=== PATIENT | female | born 1990 | race Caucasian/White ===

== ENCOUNTER 2018-11-10 21:35 | Emergency (ER) | payer MEDICAID ==
[~2018-11-10] VITALS: Ht 154.9 cm; Wt 81.6 kg
--- NOTE | 2018-11-10 21:48 | NUR ---
Patient to ER bed 3 to gown for evaluation. Side rails up.
[2018-11-10 21:50] VITALS: BP_SYST 158
--- NOTE | 2018-11-10 21:55 | NUR ---
Pt C/O sudden onset of dizziness. Pt states she was waiting for a table at a restaurant, started feeling dizzy and having palpatations. In the ED blood pressure is elevated. Denies KO, N/V, chest pain, shortness of breath, or any other symptoms at this time. Will continue to monitor.
--- NOTE | 2018-11-10 22:07 | NUR ---
ER Dr. Rene at bedside examining patient.
[2018-11-10 22:59] VITALS: BP_SYST 158
--- NOTE | 2018-11-10 23:00 | NUR ---
Patient given written and verbal discharge instructions and verbalizes understanding. ER MD discussed with patient the results and treatment provided. Patient in stable condition. ID arm band removed. Patient educated on pain management and to follow up with PMD. Pain Scale 0. Opportunity for questions provided and answered. Medication side effect fact sheet provided.
== END 2018-11-10 22:59 | disposition home or self-care (01) ==
LOC: SED 21:35
DX: R55 Syncope and collapse (principal); R03.0 Elevated blood-pressure reading, without diagnosis of hypertension; Z90.49 Acquired absence of other specified parts of digestive tract
CPT/HCPCS: 81002; 81025; 93005; 99282; 99283